=== PATIENT | male | born 1995 ===

== ENCOUNTER 2022-09-09 15:51 | Emergency (ER) | payer SELFPAY ==
[~2022-09-09] VITALS: Ht 165.1 cm; Wt 63.6 kg
[2022-09-09 15:55] VITALS: BP 135/83
[2022-09-09] MEDS ORDERED: IBUPROFEN 600 MG TABLET PO ONE (16:00)
[2022-09-09] MEDS ORDERED: IBUP-1554 PO (18:44)
== END 2022-09-09 19:10 | disposition home or self-care (01) ==
LOC: EMS 15:57
DX: S80.11XA Contusion of right lower leg, initial encounter (principal); S83.92XA Sprain of unspecified site of left knee, initial encounter; V89.2XXA Person injured in unspecified motor-vehicle accident, traffic, initial encounter; Y93.89 Activity, other specified; Y92.89 Other specified places as the place of occurrence of the external cause; Y99.8 Other external cause status
CPT/HCPCS: 99283